=== PATIENT | male | born 1965 | race Caucasian/White ===

== ENCOUNTER 2017-07-17 13:19 | Observation (INO) | payer OTHER ==
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
[2017-07-17 13:57] LABS: BASO % 0.9 % (0-2.0); EOS % 2.7 % (0-4.5); HEMATOCRIT 44.4 % (35.4-49); HEMOGLOBIN 15.2 GM/dL (11.7-16.9); LYMPH % 30.4 % (8-40); MCH 30.4 pg (25.7-33.7); MCHC 34.3 g/dl (32.0-35.9); MEAN CELL VOLUME 88.6 fl (80-96); MEAN PLT VOLUME 7.1 fl (7.5-11.1); MONO % 6.2 % (3.8-10.2); NEUT % 59.8 % (42.8-82.8); PLATELET COUNT 309 K/MM3 (134-434); RBC 5.01 M/mm3 (4.00-5.60); RDW 13.2 % (11.9-15.9); WHITE BLOOD COUNT 5.7 K/mm3 (4.0-10.0)
[2017-07-17] MEDS ORDERED: DIPHTH,PERTUSS(ACELL),TET 0.5 ML DISP.SYRIN IM ONE (14:02)
[2017-07-17 14:07] LABS: URINE APPEARANCE CLEAR; URINE BILIRUBIN NEGATIVE (<2.0 mg/dL); URINE BLOOD NEGATIVE (NEGATIVE); URINE COLOR STRAW; URINE GLUCOSE (UA) NEGATIVE (NEGATIVE); URINE KETONE NEGATIVE (NEGATIVE); URINE LEUK ESTERASE NEGATIVE (NEGATIVE); URINE NITRITE NEGATIVE (NEGATIVE); URINE PROTEIN NEGATIVE (NEGATIVE); URINE UROBILINOGEN NEGATIVE mg/dL (0.2-1.0)
[2017-07-17 14:15] LABS: INR 0.95 (0.82-1.09); PROTHROMBIN TIME (PATIENT) 10.7 SEC (9.98-11.88)
[2017-07-17 14:18] LABS: ACTIVATED PTT 25.5 SECONDS (26.9-34.4)
[2017-07-17 14:24] LABS: ALBUMIN 4.2 g/dl (3.4-5.0); ANION GAP 8 (8-16); BILIRUBIN,TOTAL 0.4 mg/dL (0.2-1.0); BLOOD UREA NITROGEN 14 mg/dL (7-18); CALCIUM 8.9 mg/dL (8.5-10.1); CHLORIDE 102 mmol/L (98-107); CO2 29 mmol/L (21-32); CREATININE 0.8 mg/dL (0.7-1.3); GLUCOSE,RANDOM 104 mg/dL (74-106); POTASSIUM 4.6 mmol/L (3.5-5.1); SGOT/AST 21 U/L (15-37); SGPT/ALT 35 U/L (12-78); SODIUM 139 mmol/L (136-145); TOT PROT 7.2 g/dl (6.4-8.2)
[2017-07-17 14:27] LABS: ALK PHOS 52 U/L (45-117)
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
[2017-07-17 18:40] VITALS: BMI 24.7
[2017-07-17 19:14] LABS: COCAINE, UR NEGATIVE ng/ml (CUTOFF=300); METHADONE, UR NEGATIVE ng/ml (CUTOFF=300); OPIATES, URI NEGATIVE ng/ml (CUTOFF=300); PHENCYCLIDINE,URINE NEGATIVE ng/ml (CUTOFF=25); URINE AMPHETAMINES NEGATIVE ng/ml (CUTOFF=500); URINE BARBITURATES NEGATIVE ng/ml (CUTOFF=200); URINE BENZODIAZEPINES NEGATIVE ng/ml (CUTOFF=200)
[2017-07-17] MEDS ORDERED: CYANOCOBALAMIN (VITAMIN B-12) 100 MCG TABLET PO SCH (22:00)
[2017-07-18 06:45] LABS: BASO % 0.8 % (0-2.0); EOS % 3.7 % (0-4.5); HEMATOCRIT 43.3 % (35.4-49); HEMOGLOBIN 15.1 GM/dL (11.7-16.9); LYMPH % 28.9 % (8-40); MCH 30.9 pg (25.7-33.7); MEAN CELL VOLUME 88.2 fl (80-96); MEAN PLT VOLUME 7.5 fl (7.5-11.1); MONO % 4.9 % (3.8-10.2); NEUT % 61.7 % (42.8-82.8); PLATELET COUNT 307 K/MM3 (134-434); RBC 4.91 M/mm3 (4.00-5.60); RDW 13.3 % (11.9-15.9); WHITE BLOOD COUNT 8.4 K/mm3 (4.0-10.0)
[2017-07-18 07:12] LABS: CHLORIDE 103 mmol/L (98-107); POTASSIUM 4.7 mmol/L (3.5-5.1); SODIUM 140 mmol/L (136-145)
[2017-07-18 07:21] LABS: ALBUMIN 3.8 g/dl (3.4-5.0); ALK PHOS 46 U/L (45-117); ANION GAP 8 (8-16); BILIRUBIN,TOTAL 0.6 mg/dL (0.2-1.0); BLOOD UREA NITROGEN 13 mg/dL (7-18); CALCIUM 9.2 mg/dL (8.5-10.1); CO2 29 mmol/L (21-32); CREATININE 0.8 mg/dL (0.7-1.3); GLUCOSE,RANDOM 104 mg/dL (74-106); MAGNESIUM 2.2 mg/dL (1.8-2.4); PHOSPHOROUS 3.7 mg/dL (2.5-4.9); SGOT/AST 21 U/L (15-37); SGPT/ALT 33 U/L (12-78); TOT PROT 6.8 g/dl (6.4-8.2)
--- NOTE | 2017-07-18 07:34 | DS ---
Physical Exam: SUBJECTIVE: Patient seen and examined OBJECTIVE: Vital Signs Period Temp Pulse Resp BP Sys/[place] Pulse Ox Last 24 Hr 97.8 F-98.7 F 68-93 18-20 107-136/60-84 98-99 PHYSICAL EXAM GENERAL: The patient is awake, alert, and fully oriented, in no acute distress. HEAD: Normal with no signs of trauma. EYES: PERRL, extraocular movements intact, sclera anicteric, conjunctiva clear. ENT: Ears normal, nares patent, oropharynx clear without exudates, moist mucous membranes. NECK: Trachea midline, full range of motion, supple. LUNGS: Breath sounds equal, clear to auscultation bilaterally, no wheezes, no crackles, no accessory muscle use. HEART: Regular rate and rhythm, S1, S2 without murmur, rub or gallop. ABDOMEN: Soft, nontender, nondistended, normoactive bowel sounds, no guarding, no rebound, no hepatosplenomegaly, no masses. EXTREMITIES: 2+ pulses, warm, well-perfused, no edema. NEUROLOGICAL: Cranial nerves II through XII grossly intact. Normal speech, gait not observed. PSYCH: Normal mood, normal affect. SKIN: Warm, dry, normal turgor, no rashes or lesions noted. LABS Laboratory Results - last 24 hr 07/17/17 07/17/17 07/17/17 13:43 13:43 13:43 WBC 5.7 RBC 5.01 Hgb 15.2 Hct 44.4 MCV 88.6 MCH 30.4 MCHC 34.3 RDW 13.2 Plt Count 309 MPV 7.1 L Neutrophils % 59.8 Lymphocytes % 30.4 Monocytes % 6.2 Eosinophils % 2.7 Basophils % 0.9 PT with INR 10.70 INR 0.95 PTT (Actin FS) 25.5 L Sodium 139 Potassium 4.6 Chloride 102 Carbon Dioxide 29 Anion Gap 8 BUN 14 Creatinine 0.8 Creat Clearance w eGFR > 60 Random Glucose 104 Calcium 8.9 Phosphorus Magnesium Total Bilirubin 0.4 AST 21 ALT 35 Alkaline Phosphatase 52 Creatine Kinase 230 Creatine Kinase Index 1.1 CK-MB (CK-2) 2.627 Troponin I < 0.02 Total Protein 7.2 Albumin 4.2 Urine Color Urine Appearance Urine pH Ur Specific [place] Urine Protein Urine Glucose (UA) Urine Ketones Urine Blood Urine Nitrite Urine Bilirubin Urine Urobilinogen Ur Leukocyte Esterase Opiates Screen Methadone Screen Barbiturate Screen Phencyclidine Screen Ur Amphetamines Screen MDMA (Ecstasy) Screen Benzodiazepines Screen Cocaine Screen U Marijuana (THC) Screen Alcohol, Quantitative 07/17/17 07/17/17 07/17/17 13:50 18:10 18:47 WBC RBC Hgb Hct MCV MCH MCHC RDW Plt Count MPV Neutrophils % Lymphocytes % Monocytes % Eosinophils % Basophils % PT with INR INR PTT (Actin FS) Sodium Potassium Chloride Carbon Dioxide Anion Gap BUN Creatinine Creat Clearance w eGFR Random Glucose Calcium Phosphorus Magnesium Total Bilirubin AST ALT Alkaline Phosphatase Creatine Kinase Creatine Kinase Index CK-MB (CK-2) Troponin I Total Protein Albumin Urine Color Straw Urine Appearance Clear Urine pH 9.0 H Ur Specific [place] 1.005 Urine Protein Negative Urine Glucose (UA) Negative Urine Ketones Negative Urine Blood Negative Urine Nitrite Negative Urine Bilirubin Negative Urine Urobilinogen Negative Ur Leukocyte Esterase Negative Opiates Screen Negative Methadone Screen Negative Barbiturate Screen Negative Phencyclidine Screen Negative Ur Amphetamines Screen Negative MDMA (Ecstasy) Screen Negative Benzodiazepines Screen Negative Cocaine Screen Negative U Marijuana (THC) Screen Negative Alcohol, Quantitative < 5.0 07/17/17 07/18/17 07/18/17 20:15 02:30 06:30 WBC 8.4 D RBC 4.91 Hgb 15.1 Hct 43.3 MCV 88.2 MCH 30.9 MCHC 35.0 RDW 13.3 Plt Count 307 MPV 7.5 Neutrophils % 61.7 Lymphocytes % 28.9 Monocytes % 4.9 Eosinophils % 3.7 Basophils % 0.8 PT with INR INR PTT (Actin FS) Sodium Potassium Chloride Carbon Dioxide Anion Gap BUN Creatinine Creat Clearance w eGFR Random Glucose Calcium Phosphorus Magnesium Total Bilirubin AST ALT Alkaline Phosphatase Creatine Kinase Creatine Kinase Index CK-MB (CK-2) Troponin I < 0.02 < 0.02 Total Protein Albumin Urine Color Urine Appearance Urine pH Ur Specific [place] Urine Protein Urine Glucose (UA) Urine Ketones Urine Blood Urine Nitrite Urine Bilirubin Urine Urobilinogen Ur Leukocyte Esterase Opiates Screen Methadone Screen Barbiturate Screen Phencyclidine Screen Ur Amphetamines Screen MDMA (Ecstasy) Screen Benzodiazepines Screen Cocaine Screen U Marijuana (THC) Screen Alcohol, Quantitative 07/18/17 06:30 WBC RBC Hgb Hct MCV MCH MCHC RDW Plt Count MPV Neutrophils % Lymphocytes % Monocytes % Eosinophils % Basophils % PT with INR INR PTT (Actin FS) Sodium 140 Potassium 4.7 Chloride 103 Carbon Dioxide 29 Anion Gap 8 BUN 13 Creatinine 0.8 Creat Clearance w eGFR > 60 Random Glucose 104 Calcium 9.2 Phosphorus 3.7 Magnesium 2.2 Total Bilirubin 0.6 D AST 21 ALT 33 Alkaline Phosphatase 46 Creatine Kinase Creatine Kinase Index CK-MB (CK-2) Troponin I Total Protein 6.8 Albumin 3.8 Urine Color Urine Appearance Urine pH Ur Specific [place] Urine Protein Urine Glucose (UA) Urine Ketones Urine Blood Urine Nitrite Urine Bilirubin Urine Urobilinogen Ur Leukocyte Esterase Opiates Screen Methadone Screen Barbiturate Screen Phencyclidine Screen Ur Amphetamines Screen MDMA (Ecstasy) Screen Benzodiazepines Screen Cocaine Screen U Marijuana (THC) Screen Alcohol, Quantitative HOSPITAL COURSE: Date of Admission:07/17/17 Date of Discharge: 07/18/17 Minutes to complete discharge: 35 Discharge Summary Reason For Visit: SYNCOPE Current Active Problems Syncope (Acute) Condition: Stable - Instructions Referrals: Jodi Swartz MD [Primary Care Provider] - - Home Medications Comprehensive Discharge Medication List: Ambulatory Orders Aspirin 81 mg PO DAILY 07/17/17 Cyanocobalamin [Vitamin B12 -] 250 mcg PO HS 07/17/17 Fish Oil/Borage/Flax/Om3,6,9 1 [[place] 3-6-9 Complex Softgel] 1 each PO HS This patient is new to me today: No Emergency Visit: Yes ED Registration Date: 07/17/17 Care time: The patient presented to the Emergency Department on the above date and was hospitalized for further evaluation of their emergent condition. Critical Care patient: No - Discharge Referral Referred to [facility] Med P.C.: No
[2017-07-18] MEDS ORDERED: ASPIRIN 81 MG CHEWABLE TABLETS PO SCH (10:00)
[2017-07-18] MEDS ORDERED: ENOXAPARIN NA (PORCINE) 40 MG/0.4 ML DISP.SYRIN SQ SCH (10:00)
--- NOTE | 2017-07-18 12:16 | EKG ---
Test Reason : Blood Pressure : / mmHG Vent. Rate : 084 BPM Atrial Rate : 084 BPM P-R Int : 142 ms QRS Dur : 076 ms QT Int : 368 ms P-R-T Axes : 068 075 041 degrees QTc Int : 434 ms NORMAL SINUS RHYTHM NORMAL ECG WHEN COMPARED WITH ECG OF 17-JUL-2017 13:58, NO SIGNIFICANT CHANGE WAS FOUND Confirmed by WAYNE ZALDIVAR MD ([id number]) on 07/18/2017 12:15:48 PM Referred By: Confirmed By:WAYNE ZALDIVAR MD
--- NOTE | 2017-07-18 12:25 | EKG ---
Test Reason : Blood Pressure : / mmHG Vent. Rate : 073 BPM Atrial Rate : 073 BPM P-R Int : 144 ms QRS Dur : 078 ms QT Int : 388 ms P-R-T Axes : 061 065 047 degrees QTc Int : 427 ms NORMAL SINUS RHYTHM POSSIBLE LEFT ATRIAL ENLARGEMENT BORDERLINE ECG NO PREVIOUS ECGS AVAILABLE Confirmed by WAYNE ZALDIVAR MD ([id number]) on 07/18/2017 12:25:18 PM Referred By: Confirmed By:WAYNE ZALDIVAR MD
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
[2017-07-18 14:03] LABS: CHOLESTEROL 297 mg/dL (50-200); LDL CHOLESTEROL (ONLY SJRH) 215 mg/dL (5-100); TRIGLYCERIDES 137 mg/dL (35-160)
[2017-07-18 14:11] LABS: HDL CHOLESTEROL 53 mg/dL (40-60)
[2017-07-18 14:36] VITALS: TEMP 99.7
[2017-07-18 14:49] VITALS: BP 125/83; PULSE 87
== END 2017-07-18 18:38 | disposition home or self-care (01) ==
LOC: JER 13:19 → JERBED 16:10 → J4W 18:56
PROVIDERS: ADMIT Internal Medicine; ATTEND Nurse Practitioner Acute Care
PROC: 3E0234Z Introduction of Serum, Toxoid and Vaccine into Muscle, Percutaneous Approach (ICD-10-PCS; principal; 2017-07-17)
DX: R55 Syncope and collapse (principal); I10 Essential (primary) hypertension; E78.5 Hyperlipidemia, unspecified; E55.9 Vitamin D deficiency, unspecified; S09.90XA Unspecified injury of head, initial encounter; V43.52XA Car driver injured in collision with other type car in traffic accident, initial encounter; Y93.89 Activity, other specified; Y92.410 Unspecified street and highway as the place of occurrence of the external cause
CPT/HCPCS: 36415; 70450-TC; 71045-TC-FY; 72125-TC; 80053; 80061; 80307; 81003; 82550; 82553; 83036; 83721; 83735; 84100; 84443; 84484; 85025; 85610; 85651; 85730; 90715; 93005; 93010; 93306-TC; 93880-TC; 99285-25; G0378

== ENCOUNTER 2021-09-15 12:27 | Emergency (ER) | payer OTHER ==
[2021-09-15 12:49] VITALS: TEMP 97.1; BMI 24.7
[2021-09-15 14:11] LABS: HEMATOCRIT 47.2 % (35.4-49); HEMOGLOBIN 15.8 GM/dL (11.7-16.9); MCHC 33.4 g/dl (32.0-35.9); MEAN CELL VOLUME 86.8 fl (80-96); MEAN PLT VOLUME 7.4 fl (7.5-11.1); PLATELET COUNT 322 10^3/uL (134-434); RBC 5.44 M/mm3 (4.00-5.60); RDW 13.4 % (11.9-15.9); WHITE BLOOD COUNT 14.8 K/mm3 (4.0-10.0)
[2021-09-15 14:27] LABS: INR 0.97 (0.83-1.09); PROTHROMBIN TIME (PATIENT) 11.1 SEC (9.7-13.0)
[2021-09-15 14:35] LABS: CALCIUM 9.7 mg/dL (8.5-10.1)
[2021-09-15 14:36] LABS: ALBUMIN 4.5 g/dl (3.4-5.0)
[2021-09-15 14:39] LABS: CREATININE 0.8 mg/dL (0.55-1.3)
[2021-09-15 14:40] LABS: BILIRUBIN,TOTAL 0.4 mg/dL (0.2-1)
[2021-09-15 14:44] LABS: LACTIC ACID 2.7 mmol/L (0.4-2.0)
[2021-09-15 14:46] LABS: ANISOCYTOSIS 0; HELMET CELLS 0; HOWELL-JOLLY BODIES 0; MACROCYTOSIS 0; OVALOCYTE 0; ROULEAU 0; SICKELED CELLS 0; TARGET CELLS 0; TEAR DROP CELLS 0; TOXIC GRANULATION 0
[2021-09-15] MEDS ORDERED: LACTATED RINGERS SOLUTION 1000 ML INFUS.BAG IV ONE (15:39)
[2021-09-15] MEDS ORDERED: levETIRAcetam 500 MG/5 ML INJECTION VIAL IVPB ONE ×2 (15:39→16:19)
[2021-09-15 18:37] VITALS: BP 126/84; PULSE 80
[2021-09-15 18:52] LABS: LACTIC ACID 5.4 mmol/L (0.4-2.0)
== END 2021-09-15 20:42 | disposition home or self-care (01) ==
LOC: JER 12:27
PROC: 3E033GC Introduction of Other Therapeutic Substance into Peripheral Vein, Percutaneous Approach (ICD-10-PCS; principal; 2021-09-15)
DX: R55 Syncope and collapse (principal)
CPT/HCPCS: 36415; 70450-TC; 71046-TC-FY; 80053; 83605; 84484; 85025; 85610; 85730; 86850; 86900; 86901; 93005; 93010; 99285-25